=== PATIENT | male | born 1950 | race Caucasian/White ===

== ENCOUNTER 2019-12-15 16:00 | Inpatient (IN) ==
[2019-12-15 16:50] LABS: Basophils # 0.1 10*3/uL (0.0-0.2); Basophils % 1.3 % (0.0-0.8); Eosinophils # 0.4 10*3/uL (0.0-0.87); Eosinophils % 5.1 % (0.00-10.9); Hematocrit 24.7 VOL% (42.0-52.0); Hemoglobin 7.4 GM/DL (14.0-18.0); Immature Granulocytes % 0.6 %; Immature Granulocytes Absolute 0.05 #; Lymphocytes # 1.1 10*3/uL (1.4-4.0); Lymphocytes % 13.6 % (21.2-54.2); Mean Corpuscular Volume 96.9 FL (87-102); Mean Platelet Volume 11.7 FL (9.6-12.0); Monocytes % 13.7 % (1.7-12.7); Neutrophils % 65.7 % (38.7-73.9); Platelet Count 130 T/CUMM (130-400); Red Blood Count 2.55 MC/CUMM (3.8-5.5); Red Cell Distribution Width 15.5 % (9.3-17.3); White Blood Count 7.9 T/CUMM (4-12)
[2019-12-15 17:03] LABS: Albumin 1.8 G/DL (3.4-5.0); Bilirubin,Total 2.4 MG/DL (0.2-1.0); Calcium 7.9 MG/DL (8.5-10.1); Osmolality,Calculated 268.2 MOS/KG (273-304); Total Protein 6.3 G/DL (6.4-8.3)
[2019-12-15] MEDS ORDERED: SODIUM CHLORIDE 0.9% 1,000 ML IV PRN ×2 (17:14→18:01)
[2019-12-15] MEDS ORDERED: GLUCAGON 1 MG VIAL IM PRN (17:31)
[2019-12-15] MEDS ORDERED: DEXTROSE 10% 250 ML BAG IV PRN (17:31)
[2019-12-15] MEDS ORDERED: ZALEPLON 5 MG CAPSULE PO PRN (17:31)
[2019-12-15] MEDS ORDERED: traZODone 50 MG TABLET PO PRN (17:31)
[2019-12-15] MEDS ORDERED: ONDANSETRON 4 MG/2 ML VIAL IV PRN (17:31)
[2019-12-15] MEDS ORDERED: FUROSEMIDE 40 MG/4 ML VIAL IV PRN (18:30)
[2019-12-15] MEDS: LACTULOSE 20 GM/30 ML UDCUP PO SCH (20:37)
[2019-12-16] MEDS ORDERED: diphenhydrAMINE CAP 25 MG CAPSULE PO ONE (00:43)
[2019-12-16] MEDS ORDERED: ACETAMINOPHEN 500 MG TABLET PO ONE (00:43)
[2019-12-16 01:13] LABS: Basophils # 0.1 10*3/uL (0.0-0.2); Basophils % 0.6 % (0.0-0.8); Eosinophils # 0.2 10*3/uL (0.0-0.87); Eosinophils % 1.8 % (0.00-10.9); Hematocrit 21.4 VOL% (42.0-52.0); Hemoglobin 6.6 GM/DL (14.0-18.0); Immature Granulocytes % 0.9 %; Immature Granulocytes Absolute 0.09 #; Lymphocytes # 0.7 10*3/uL (1.4-4.0); Lymphocytes % 6.6 % (21.2-54.2); Mean Corpuscular HGB Conc 30.8 GM/DL (32-36); Mean Corpuscular Volume 94.7 FL (87-102); Mean Platelet Volume 11.1 FL (9.6-12.0); Monocytes % 11.7 % (1.7-12.7); Neutrophils % 78.4 % (38.7-73.9); Platelet Count 115 T/CUMM (130-400); Red Blood Count 2.26 MC/CUMM (3.8-5.5); Red Cell Distribution Width 15.4 % (9.3-17.3); White Blood Count 10.1 T/CUMM (4-12)
[2019-12-16] MEDS ORDERED: methylPREDNISolone SOD SUC 40 MG/1 ML VIAL ONE (01:24)
[2019-12-16 01:26] LABS: Albumin 1.5 G/DL (3.4-5.0); Bilirubin,Total 2.3 MG/DL (0.2-1.0); Calcium 7.6 MG/DL (8.5-10.1); Osmolality,Calculated 271.1 MOS/KG (273-304); Total Protein 5.4 G/DL (6.4-8.3)
[2019-12-16] MEDS: LACTULOSE 20 GM/30 ML UDCUP PO SCH ×6 (01:30→20:45)
[2019-12-16] MEDS ORDERED: methylPREDNISolone SOD SUC 40 MG/1 ML VIAL IV ONE (02:00)
[2019-12-16] MEDS ORDERED: FAMOTIDINE 20 MG/2 ML VIAL IV ONE (02:00)
[2019-12-16 02:11] LABS: Apearance,Urine CLEAR (Clear); Bilirubin,Urine Negative (Negative); Blood, Urine Large mg/dL (Negative); Calcium Oxalate Crystals,Urine Occasional /HPF (Few); Glucose,Urine (UA) Negative (Negative); Ketones,Urine Negative (Negative); Mucus,Urine Many /LPF (Occasional); Nitrite,Urine Negative (Negative); Protein,Urine 30 MG/DL; RBC,Urine 83 /HPF (0-4); Squamous Epithelial Cell,Urine Occasional /HPF (0-10); Urine Color Amber (Yellow); Urine Specific Gravity 1.017 (1.001-1.035); Urine Urobilinogen < 2.0 EU/DL (0.2-1.0); WBC,Urine 31 /HPF (0-6)
[2019-12-16 05:55] LABS: Basophils # 0.1 10*3/uL (0.0-0.2); Basophils % 0.6 % (0.0-0.8); Eosinophils % 0.2 % (0.00-10.9); Hematocrit 21.4 VOL% (42.0-52.0); Hemoglobin 6.5 GM/DL (14.0-18.0); Immature Granulocytes % 1.1 %; Immature Granulocytes Absolute 0.09 #; Lymphocytes # 0.3 10*3/uL (1.4-4.0); Lymphocytes % 3.4 % (21.2-54.2); Mean Corpuscular HGB Conc 30.4 GM/DL (32-36); Mean Corpuscular Volume 94.7 FL (87-102); Mean Platelet Volume 11.9 FL (9.6-12.0); Monocytes % 4.5 % (1.7-12.7); Neutrophils % 90.2 % (38.7-73.9); Platelet Count 93 T/CUMM (130-400); Red Blood Count 2.26 MC/CUMM (3.8-5.5); Red Cell Distribution Width 15.5 % (9.3-17.3); White Blood Count 8.5 T/CUMM (4-12)
[2019-12-16 06:12] LABS: Hypochromasia 1+; Lymphocytes 1 % (20-55); Segmented Neutrophils 97 % (50-85); Total Cells Counted 100
[2019-12-16 06:13] LABS: Macrocytosis 1+; Polychromasia Slight
[2019-12-16 06:14] LABS: Platelet Estimate Decreased; Tear Drop Cells Slight
[2019-12-16 06:44] LABS: Folate 5.4 NG/ML (5.4-24.0)
[2019-12-16 06:47] LABS: Ferritin 38.3 ng/ml (26-388)
[2019-12-16 06:54] LABS: Albumin 1.7 G/DL (3.4-5.0); Bilirubin,Total 2.7 MG/DL (0.2-1.0); Calcium 7.7 MG/DL (8.5-10.1); Osmolality,Calculated 269.2 MOS/KG (273-304); Risk Ratio 2.43; Thyroid Stimulating Hormone 1.18 uIU/ml (0.358-3.74); Total Protein 5.6 G/DL (6.4-8.3)
[2019-12-16] MEDS ORDERED: FAMOTIDINE INJ 40 MG in SODIUM CHLORIDE 0.9% 100 ML IV SCH (08:00)
[2019-12-16] MEDS: FOLIC ACID 1 MG TABLET PO SCH (09:45)
[2019-12-16] MEDS: PANTOPRAZOLE 40 MG TABLET PO SCH (09:45)
[2019-12-16] MEDS ORDERED: SODIUM CHLORIDE 0.9% 1,000 ML IV PRN (10:56)
[2019-12-16] MEDS ORDERED: diphenhydrAMINE CAP 25 MG CAPSULE PO SCH (11:00)
[2019-12-16] MEDS ORDERED: FUROSEMIDE 40 MG/4 ML VIAL IV ONE (11:00)
[2019-12-16 11:48] LABS: INR 1.8; PT Patient Result 18.4 SECS (9.8-11.9)
[2019-12-16 12:03] LABS: Hematocrit 26.8 VOL% (42.0-52.0); Hemoglobin 8.1 GM/DL (14.0-18.0)
[2019-12-17] MEDS: LACTULOSE 20 GM/30 ML UDCUP PO SCH ×6 (00:52→21:56)
[2019-12-17 05:22] LABS: Basophils % 0.1 % (0.0-0.8); Eosinophils % 0.1 % (0.00-10.9); Hematocrit 25.9 VOL% (42.0-52.0); Hemoglobin 7.8 GM/DL (14.0-18.0); Immature Granulocytes % 1.3 %; Immature Granulocytes Absolute 0.17 #; Lymphocytes # 1.1 10*3/uL (1.4-4.0); Lymphocytes % 8.4 % (21.2-54.2); Mean Corpuscular HGB Conc 30.1 GM/DL (32-36); Mean Corpuscular Volume 91.5 FL (87-102); Mean Platelet Volume 11.3 FL (9.6-12.0); Neutrophils % 80.1 % (38.7-73.9); Platelet Count 132 T/CUMM (130-400); Red Blood Count 2.83 MC/CUMM (3.8-5.5); Red Cell Distribution Width 18.2 % (9.3-17.3); White Blood Count 13.6 T/CUMM (4-12)
[2019-12-17 05:53] LABS: Albumin 1.9 G/DL (3.4-5.0); Bilirubin,Total 2.9 MG/DL (0.2-1.0); Calcium 7.8 MG/DL (8.5-10.1); Osmolality,Calculated 277.8 MOS/KG (273-304); Total Protein 6.2 G/DL (6.4-8.3)
[2019-12-17] MEDS ORDERED: SODIUM CHLORIDE 0.9% 1,000 ML IV PRN (06:47)
[2019-12-17] MEDS: FOLIC ACID 1 MG TABLET PO SCH (09:20)
[2019-12-17] MEDS: PANTOPRAZOLE 40 MG TABLET PO SCH (09:21)
[2019-12-17] MEDS ORDERED: FUROSEMIDE 40 MG/4 ML VIAL IV ONE (10:00)
[2019-12-17] MEDS ORDERED: ALBUMIN IV ONE (14:00)
[2019-12-17] MEDS ORDERED: cefTRIAXone 2,000 MG in SYRINGE 1 EACH IV SCH (14:00)
[2019-12-18] MEDS: LACTULOSE 20 GM/30 ML UDCUP PO SCH ×6 (04:00→23:17)
[2019-12-18 05:16] LABS: Basophils % 0.5 % (0.0-0.8); Eosinophils # 0.2 10*3/uL (0.0-0.87); Eosinophils % 3.1 % (0.00-10.9); Hematocrit 24.2 VOL% (42.0-52.0); Hemoglobin 7.6 GM/DL (14.0-18.0); Immature Granulocytes % 1.2 %; Immature Granulocytes Absolute 0.07 #; Lymphocytes # 0.6 10*3/uL (1.4-4.0); Lymphocytes % 10.5 % (21.2-54.2); Mean Corpuscular HGB Conc 31.4 GM/DL (32-36); Mean Corpuscular Volume 90.6 FL (87-102); Mean Platelet Volume 11.3 FL (9.6-12.0); Monocytes % 11.9 % (1.7-12.7); Neutrophils % 72.8 % (38.7-73.9); Red Blood Count 2.67 MC/CUMM (3.8-5.5); Red Cell Distribution Width 17.4 % (9.3-17.3); White Blood Count 5.8 T/CUMM (4-12)
[2019-12-18 05:24] LABS: Platelet Count 83 T/CUMM (130-400)
[2019-12-18 05:37] LABS: Albumin 2.4 G/DL (3.4-5.0); Bilirubin,Total 2.7 MG/DL (0.2-1.0); Calcium 8.2 MG/DL (8.5-10.1); Osmolality,Calculated 275.8 MOS/KG (273-304); Total Protein 5.8 G/DL (6.4-8.3)
[2019-12-18 05:50] LABS: Hypochromasia 1+
[2019-12-18 05:51] LABS: Anisocytosis 1+; Ovalocytes Slight
[2019-12-18 05:52] LABS: Platelet Estimate Decreased; Target Cells Slight
[2019-12-18] MEDS ORDERED: SODIUM CHLORIDE 0.9% 1,000 ML IV PRN (06:51)
[2019-12-18] MEDS ORDERED: diphenhydrAMINE 50 MG/1 ML VIAL IV PRN (07:30)
[2019-12-18] MEDS ORDERED: diphenhydrAMINE 50 MG/1 ML VIAL ONE (07:36)
[2019-12-18] MEDS: FOLIC ACID 1 MG TABLET PO SCH (08:49)
[2019-12-18] MEDS ORDERED: FUROSEMIDE 40 MG/4 ML VIAL IV SCH (10:00)
[2019-12-18] MEDS ORDERED: PIPERACILLIN/TAZOBACTAM 3,375 MG in SODIUM CHLORIDE 0.9% 100 ML IV SCH (11:00)
[2019-12-18 12:16] LABS: Neutrophils,Peritoneal Fluid 34 %
[2019-12-18 12:17] LABS: RBC,Peritoneal Fluid 190 T/CUMM
[2019-12-18] MEDS: PIPERACILLIN/TAZOBACTAM 3,375 MG in SODIUM CHLORIDE 0.9% 100 ML IV SCH ×2 (15:05→22:30)
[2019-12-18] MEDS ORDERED: MORPHINE 4 MG/1 ML VIAL IV ONE (22:22)
[2019-12-19] MEDS: LACTULOSE 20 GM/30 ML UDCUP PO SCH ×6 (01:06→21:00)
[2019-12-19 06:47] LABS: Basophils # 0.1 10*3/uL (0.0-0.2); Basophils % 1.2 % (0.0-0.8); Eosinophils # 0.4 10*3/uL (0.0-0.87); Eosinophils % 7.3 % (0.00-10.9); Hematocrit 28.4 VOL% (42.0-52.0); Hemoglobin 8.9 GM/DL (14.0-18.0); Immature Granulocytes % 0.8 %; Immature Granulocytes Absolute 0.04 #; Lymphocytes # 1.1 10*3/uL (1.4-4.0); Lymphocytes % 22.8 % (21.2-54.2); Mean Corpuscular HGB Conc 31.3 GM/DL (32-36); Mean Platelet Volume 11.3 FL (9.6-12.0); Monocytes % 15.2 % (1.7-12.7); Neutrophils % 52.7 % (38.7-73.9); Platelet Count 68 T/CUMM (130-400); Red Blood Count 3.12 MC/CUMM (3.8-5.5); Red Cell Distribution Width 17.3 % (9.3-17.3)
[2019-12-19 06:49] LABS: INR 1.8; PT Patient Result 18.8 SECS (9.8-11.9)
[2019-12-19 07:14] LABS: Albumin 2.1 G/DL (3.4-5.0); Bilirubin,Total 2.8 MG/DL (0.2-1.0); Calcium 7.6 MG/DL (8.5-10.1); Total Protein 5.4 G/DL (6.4-8.3)
[2019-12-19] MEDS: PIPERACILLIN/TAZOBACTAM 3,375 MG in SODIUM CHLORIDE 0.9% 100 ML IV SCH ×2 (09:28→17:46)
[2019-12-19] MEDS: FOLIC ACID 1 MG TABLET PO SCH (09:29)
[2019-12-19] MEDS: VANCOMYCIN INJ 1,500 MG in SODIUM CHLORIDE 0.9% 500 ML IV SCH ×2 (10:45→21:53)
[2019-12-19] MEDS ORDERED: MAGNESIUM OXIDE 400 MG TABLET PO ONE (13:08)
[2019-12-19] MEDS: ALBUMIN 25% 50 GM in PREMIX 1 EACH IV SCH ×2 (13:30→20:59)
[2019-12-19] MEDS: PANTOPRAZOLE 40 MG TABLET PO SCH (13:30)
[2019-12-19] MEDS: POTASSIUM CHLORIDE 20 MEQ TABLET PO PRN ×4 (13:30→23:45)
[2019-12-20] MEDS: LACTULOSE 20 GM/30 ML UDCUP PO SCH ×7 (00:22→21:19)
[2019-12-20] MEDS: PIPERACILLIN/TAZOBACTAM 3,375 MG in SODIUM CHLORIDE 0.9% 100 ML IV SCH ×3 (02:16→18:06)
[2019-12-20 06:14] LABS: Basophils % 0.8 % (0.0-0.8); Eosinophils # 0.6 10*3/uL (0.0-0.87); Eosinophils % 11.6 % (0.00-10.9); Hemoglobin 8.8 GM/DL (14.0-18.0); Immature Granulocytes % 0.4 %; Immature Granulocytes Absolute 0.02 #; Lymphocytes # 0.8 10*3/uL (1.4-4.0); Lymphocytes % 15.7 % (21.2-54.2); Mean Corpuscular HGB Conc 31.4 GM/DL (32-36); Mean Corpuscular Volume 91.5 FL (87-102); Mean Platelet Volume 11.3 FL (9.6-12.0); Monocytes % 14.7 % (1.7-12.7); Neutrophils % 56.8 % (38.7-73.9); Red Blood Count 3.06 MC/CUMM (3.8-5.5); Red Cell Distribution Width 17.3 % (9.3-17.3); White Blood Count 5.1 T/CUMM (4-12)
[2019-12-20 06:29] LABS: Platelet Count 63 T/CUMM (130-400)
[2019-12-20 06:40] LABS: Albumin 2.7 G/DL (3.4-5.0); Bilirubin,Total 3.3 MG/DL (0.2-1.0); Calcium 7.8 MG/DL (8.5-10.1); Total Protein 5.6 G/DL (6.4-8.3)
[2019-12-20 07:05] LABS: Eosinophils 17 % (0-10); Hypochromasia 1+; Lymphocytes 10 % (20-55); Ovalocytes Slight; Platelet Estimate Decreased; Segmented Neutrophils 65 % (50-85); Total Cells Counted 100
[2019-12-20] MEDS: VANCOMYCIN INJ 1,500 MG in SODIUM CHLORIDE 0.9% 500 ML IV SCH ×2 (09:08→21:32)
[2019-12-20] MEDS: PANTOPRAZOLE 40 MG TABLET PO SCH (09:09)
[2019-12-20] MEDS: FOLIC ACID 1 MG TABLET PO SCH (09:09)
[2019-12-20] MEDS ORDERED: MAGNESIUM SULF RIDER 2 GM in PREMIX 1 EACH IV ONE (14:39)
[2019-12-20] MEDS ORDERED: SPIRONOLACTONE 25 MG TABLET PO SCH (18:00)
[2019-12-21] MEDS: LACTULOSE 20 GM/30 ML UDCUP PO SCH ×3 (00:56→10:20)
[2019-12-21] MEDS: PIPERACILLIN/TAZOBACTAM 3,375 MG in SODIUM CHLORIDE 0.9% 100 ML IV SCH (00:57)
[2019-12-21] MEDS ORDERED: MORPHINE 4 MG/1 ML VIAL IV PRN (04:31)
[2019-12-21 05:31] VITALS: BP 134/72
[2019-12-21 06:45] LABS: INR 1.9; PT Patient Result 19.6 SECS (9.8-11.9)
[2019-12-21] MEDS ORDERED: PHENYLEPHRINE DRIP 40 MG/250 ML PREMIX IV ONE (06:45)
[2019-12-21] MEDS ORDERED: PHENYLEPHRINE DRIP 40 MG/250 ML PREMIX IV PRN (06:51)
[2019-12-21 06:55] LABS: Calcium 7.7 MG/DL (8.5-10.1); Osmolality,Calculated 280.5 MOS/KG (273-304)
[2019-12-21] MEDS ORDERED: NOREPINEPHRINE 4 MG/4 ML VIAL IV ONE (07:04)
[2019-12-21 07:20] LABS: ABG Base Excess -16.7 MMOL/L (-2.5-2.5); ABG HCO3 11.4 MMOL/L (20-26); ABG Oxygen Saturation 99.7 % (95-100); ABG PCO2 30.7 MM HG (35-48); ABG TCO2 10.8 MMOL/L (23-27)
[2019-12-21 07:21] LABS: ABG PH 7.155 (7.35-7.45)
[2019-12-21] MEDS ORDERED: SODIUM BICARBONATE 50 MEQ/50 ML VIAL IV ONE ×4 (07:22→09:17)
[2019-12-21] MEDS ORDERED: NOREPINEPHRINE 8 MG in SODIUM CHLORIDE 0.9% 242 ML IV PRN (07:30)
[2019-12-21] MEDS ORDERED: ETOMIDATE 20 MG/10 ML VIAL IV ONE ×2 (07:40)
[2019-12-21] MEDS ORDERED: SUCCINYLCHOLINE 200 MG/10 ML VIAL IV ONE (07:40)
[2019-12-21] MEDS ORDERED: SUCCINYLCHOLINE 200 MG/10 ML VIAL ONE (07:41)
[2019-12-21] MEDS ORDERED: CALCIUM CHLORIDE 1,000 MG/10 ML SYRINGE IV ONE ×2 (07:42→07:44)
[2019-12-21] MEDS ORDERED: EPINEPHrine 1 MG/ML VIAL ONE (07:42)
[2019-12-21] MEDS ORDERED: SODIUM CHLORIDE 0.9% 1,000 ML IV PRN ×2 (07:42→07:55)
[2019-12-21 07:53] LABS: Basophils # 0.1 10*3/uL (0.0-0.2); Basophils % 0.5 % (0.0-0.8); Eosinophils # 0.6 10*3/uL (0.0-0.87); Eosinophils % 5.4 % (0.00-10.9); Immature Granulocytes % 7.6 %; Lymphocytes # 2.2 10*3/uL (1.4-4.0); Lymphocytes % 18.6 % (21.2-54.2); Mean Corpuscular HGB Conc 28.7 GM/DL (32-36); Monocytes % 11.4 % (1.7-12.7); NRBC # 0.02 10*3/uL; Neutrophils % 56.5 % (38.7-73.9); Platelet Count 74 T/CUMM (130-400); Red Blood Count 1.69 MC/CUMM (3.8-5.5); Red Cell Distribution Width 18.6 % (9.3-17.3); White Blood Count 11.9 T/CUMM (4-12)
[2019-12-21] MEDS ORDERED: ALBUMIN 5% 12.5 GM/250 ML VIAL IV ONE ×4 (07:54→10:46)
[2019-12-21 08:06] LABS: Hematocrit 17.4 VOL% (42.0-52.0)
[2019-12-21 08:11] LABS: Albumin 1.5 G/DL (3.4-5.0); Bilirubin,Total 1.8 MG/DL (0.2-1.0); Calcium 7.2 MG/DL (8.5-10.1); Total Protein 3.6 G/DL (6.4-8.3)
[2019-12-21] MEDS ORDERED: MIDAZOLAM 100 MG in SODIUM CHLORIDE 0.9% 80 ML IV PRN (08:18)
[2019-12-21 08:30] LABS: Band Neutrophils 3 % (0-10); Eosinophils 9 % (0-10); Lymphocytes 11 % (20-55); Metamyelocytes 4 %; Myelocytes 2 %; Platelet Estimate Decreased; Segmented Neutrophils 64 % (50-85); Total Cells Counted 100
[2019-12-21] MEDS ORDERED: SODIUM BICARB INJ 150 MEQ in DEXTROSE 5% 850 ML IV SCH (08:30)
[2019-12-21 08:31] LABS: Anisocytosis 2+; Macrocytosis 2+; Polychromasia Slight
[2019-12-21] MEDS ORDERED: CALCIUM CHLORIDE 1,000 MG/10 ML VIAL IV ONE ×3 (08:52→09:29)
[2019-12-21] MEDS ORDERED: PANTOPRAZOLE 40 MG VIAL IV SCH (09:00)
[2019-12-21 09:08] LABS: ABG HCO3 9.6 MMOL/L (20-26); ABG Oxygen Saturation 98.9 % (95-100); ABG PCO2 38.4 MM HG (35-48); ABG PO2 381.1 MM HG (80-95); ABG TCO2 10.8 MMOL/L (23-27); Glucose Heart Surgery 167 MG/DL (74-106); Hemoglobin Heart Surgery 8.1 G/DL (14.0-18.0); PCO2 Patient Temp Arterial 38.4 MMHG; PH Patient Temp Arterial 7.016; PO2 Patient Temp Arterial 381.1 MM HG; Patient Temperature 37 CELCIUS; Potassium Heart/CVR 3.7 MMOL/L (3.5-5.1); Sodium Heart/CVR 139 MMOL/L (135-145)
[2019-12-21 09:10] LABS: ABG PH 7.016 (7.35-7.45)
[2019-12-21] MEDS ORDERED: SODIUM BICARBONATE 10 MEQ/10 ML SYRINGE IV ONE (09:14)
[2019-12-21] MEDS ORDERED: SODIUM CHLORIDE 0.9% 200 ML IV ONE (10:45)
[2019-12-21] MEDS ORDERED: ROCURONIUM 100 MG/10 ML VIAL IV ONE (10:45)
[2019-12-21] MEDS ORDERED: FUROSEMIDE 40 MG TABLET PO SCH (18:00)
[2019-12-21] MEDS ORDERED: VANCOMYCIN INJ 1,500 MG in SODIUM CHLORIDE 0.9% 500 ML IV SCH (21:00)
== END 2019-12-21 10:00 | disposition expired | DRG 981 ==
LOC: N.ED 16:00 → N.EDINP 17:31 → SUATTDRO 17:31 → N.3E 18:20 → N.2E 12-16 02:44 → N.TELEN 12-20 14:35 → N.ICU 12-21 06:41
PROVIDERS: ADMIT Family Medicine; ATTEND Internal Medicine